=== PATIENT | male | born 1990 | race Caucasian/White ===

== ENCOUNTER 2018-05-26 12:55 | Emergency (ER) | payer OTHER ==
[2018-05-26 13:06] VITALS: BMI 37.1
[2018-05-26 13:07] VITALS: BP 149/92; PULSE 94; RESP 20; TEMP 98.9; O2SAT 100
--- NOTE | 2018-05-26 14:09 | C.PDOC ---
History Of Present Illness 28-year-old male presents to the ED for evaluation of pleuritic chest pain which began yesterday. Patient notes he has been experiencing upper respiratory symptoms for the past 2-3 days. He was evaluated in [facility] on 05/24 where he underwent a CXR and was prescribed Amoxicillin and Claritin. Patient notes his URI symptoms improved, but he presents to the ED today because he is concerned about the pain. He denies fever, chills, or recent trauma. Time Seen by Provider: 05/26/18 13:16 Chief Complaint (Nursing): Cough, Cold, Congestion History Per: Patient History/Exam Limitations: no limitations Onset/Duration Of Symptoms: Hrs Current Symptoms Are (Timing): Still Present Sick Contacts (Context): None Associated Symptoms: denies: Fever, Chills Additional History Per: Patient Past Medical History Reviewed: Historical Data, Nursing Documentation, Vital Signs Vital Signs: Last Vital Signs Temp 98.9 F 05/26/18 13:16 Pulse 94 H 05/26/18 13:16 Resp 20 05/26/18 14:00 BP 149/92 H 05/26/18 13:16 Pulse Ox 100 05/26/18 14:10 - Medical History PMH: No Chronic Diseases Surgical History: No Surg Hx Family History: States: Unknown Family Hx - Social History Hx Tobacco Use: No Hx Alcohol Use: Yes Hx Substance Use: No - Immunization History Hx Tetanus Toxoid Vaccination: No Hx Influenza Vaccination: No Hx Pneumococcal Vaccination: No Review Of Systems Constitutional: Negative for: Fever, Chills Cardiovascular: Positive for: Chest Pain (pleuritic ) Physical Exam - Physical Exam Appears: Non-toxic, No Acute Distress Skin: Normal Color, Warm, Dry, No Rash (chest ) Head: Atraumatic, Normacephalic Eye(s): bilateral: Normal Inspection Oral Mucosa: Moist Neck: Supple Chest: Symmetrical, No Deformity, No Tenderness Cardiovascular: Rhythm Regular, No Murmur Respiratory: Normal Breath Sounds, No Rales, No Rhonchi, No Wheezing, Other ( speaking in full sentences ) Extremity: Normal ROM, Capillary Refill (less than 2 seconds ) Neurological/Psych: Oriented x3, Normal Speech, Normal Cognition ED Course And Treatment O2 Sat by Pulse Oximetry: 100 (on RA) Pulse Ox Interpretation: Normal Progress Note: Patient is reassured that his pain may be caused by increased coughing. Will not repeat CXR because patient recently had one done at [facility]. Motrin PO given. On reasessment, patient is resting comfortably, showing no signs of distress and reports an improvement in his symptoms. Patient is stable for discharge. Advised to follow up with PMD within 1-2 days for further evaluation. Patient understands to return to the ED if symptoms worsen. Disposition Counseled Patient/Family Regarding: Diagnosis, Need For Followup, Rx Given - Disposition Referrals: [facility] [Outside] Disposition: HOME/ ROUTINE Disposition Time: 14:15 Condition: STABLE Additional Instructions: FOLLOW UP WITH YOUR DOCTOR/CLINIC IN 1-2 DAYS USE MEDICATIONS DIRECTED RETURN TO ER IF SYMPTOMS WORSEN Prescriptions: Ibuprofen [Motrin Tab] 600 mg PO Q6 PRN #30 tab PRN Reason: fever/pain Instructions: Costochondritis (DC) Forms: [employer] (Luxembourgish) Print Language: CYMRAES - Clinical Impression Clinical Impression: Costochondritis, acute - Scribe Statement The provider has reviewed the documentation as recorded by the Scribe (Bernice Bell) Provider Attestation: All medical record entries made by the Scribe were at my direction and personally dictated by me. I have reviewed the chart and agree that the record accurately reflects my personal performance of the history, physical exam, medical decision making, and the department course for this patient. I have also personally directed, reviewed, and agree with the discharge instructions and disposition.
== END 2018-05-26 14:19 | disposition home or self-care (01) ==
LOC: C.ER 12:55
DX: M94.0 Chondrocostal junction syndrome [Tietze] (principal)